=== PATIENT | female | born 1990 | race Caucasian/White ===

== ENCOUNTER 2019-02-20 20:10 | Inpatient (IN) | payer OTHER ==
[~2019-02-20] VITALS: Ht 180.3 cm; Wt 185.0 kg
[~2019-02-20 20:10] MED LIST: Bactrim Ds Tab1 EACH PO; CEPH500 PO; CIPR500 PO; CODACE30 PO; CRUTCH2 USE; FAMO20 PO; FLUO.1OPSO; HYDACE5; HYDACE5 PO; IBUP800 PO; LABE100 PO; LEVFLO500 PO; LOPE2C PO; MULVITMINE PO; NAPR500 PO; NITR100CA PO; ONDA4ODT MM; OXYACE5T PO; PHENA100 PO; PROM25 PO; Prednisone20 MG PO; RXCODACET PO; RXHYDACE PO; RXPROM25 PO; SULTRIDS PO; TOBR.3OPSO OU; Zofran Odt4 MG SL
[2019-02-20 20:48] LABS: BASOPHILS ABSOLUTE AUTO 0.02 K/mm3 (0.00-0.23); BASOPHILS PERCENT AUTO 0 % (0-2); EOSINOPHILS ABSOLUTE AUTO 0.04 K/mm3 (0.00-0.68); EOSINOPHILS PERCENT AUTO 0 % (0-6); Hematocrit 36.6 % (33.0-51.0); Hemoglobin 12.4 g/dL (11.5-16.0); IMMATURE GRAN ABSOLUTE AUTO 0.06 K/mm3 (0.00-0.10); IMMATURE GRAN PERCENT AUTO 1 % (0-1); LYMPHOCYTES ABSOLUTE AUTO 1.97 K/mm3 (0.84-5.20); LYMPHOCYTES PERCENT AUTO 18 % (21-46); MONOCYTES ABSOLUTE AUTO 0.92 K/mm3 (0.16-1.47); MONOCYTES PERCENT AUTO 9 % (4-13); Mean Corpuscular HGB 29.2 pg (26.0-34.0); Mean Corpuscular HGB Conc 33.9 g/dL (31.5-36.5); Mean Corpuscular Volume 86 fL (80-100); Mean Platelet Volume 11.5 fL (9.1-12.4); NEUTROPHILS ABSOLUTE AUTO 7.77 K/mm3 (1.96-9.15); NEUTROPHILS PERCENT AUTO 72 % (41-73); Platelet Count 197 K/mm3 (150-400); RDW Coefficient Variation 13.7 % (11.7-14.2); RDW Standard Deviation 42.6 fL (35.1-46.3); Red Blood Cell Count 4.24 M/mm3 (3.80-5.20); White Blood Cell Count 10.78 K/mm3 (4.00-11.30)
[2019-02-20] MEDS ORDERED: Vitamin C100 M1 (21:03)
[2019-02-20] MEDS ORDERED: IRON150C (21:03)
[2019-02-20] MEDS ORDERED: Verotin-Gr Cap1 EACH (21:03)
[2019-02-22 06:03] LABS: BASOPHILS ABSOLUTE AUTO 0.03 K/mm3 (0.00-0.23); BASOPHILS PERCENT AUTO 0 % (0-2); EOSINOPHILS ABSOLUTE AUTO 0.04 K/mm3 (0.00-0.68); EOSINOPHILS PERCENT AUTO 0 % (0-6); Hemoglobin 11.1 g/dL (11.5-16.0); IMMATURE GRAN ABSOLUTE AUTO 0.04 K/mm3 (0.00-0.10); IMMATURE GRAN PERCENT AUTO 0 % (0-1); LYMPHOCYTES ABSOLUTE AUTO 1.65 K/mm3 (0.84-5.20); LYMPHOCYTES PERCENT AUTO 14 % (21-46); MONOCYTES ABSOLUTE AUTO 1.21 K/mm3 (0.16-1.47); MONOCYTES PERCENT AUTO 10 % (4-13); Mean Corpuscular HGB 28.2 pg (26.0-34.0); Mean Corpuscular HGB Conc 32.6 g/dL (31.5-36.5); Mean Corpuscular Volume 87 fL (80-100); Mean Platelet Volume 11.3 fL (9.1-12.4); NEUTROPHILS ABSOLUTE AUTO 8.78 K/mm3 (1.96-9.15); NEUTROPHILS PERCENT AUTO 75 % (41-73); Platelet Count 186 K/mm3 (150-400); RDW Coefficient Variation 13.8 % (11.7-14.2); RDW Standard Deviation 43.2 fL (35.1-46.3); Red Blood Cell Count 3.93 M/mm3 (3.80-5.20); White Blood Cell Count 11.75 K/mm3 (4.00-11.30)
--- NOTE | 2019-02-22 17:30 | NUR ---
LONG BP CUFF USED INSTEAD OF RADIAL CUFF
[2019-02-22] MEDS ORDERED: IBUP800 PO (20:30)
--- NOTE | 2019-02-22 20:58 | NUR ---
RN REVIEWED DISCHARGE INSTRUCTIONS WITH PATIENT AND S.O., BOTH VERBALIZED UNDERSTANDING AND DENIED ANY FURTHER QUESTIONS OR CONCERNS. BANDS MATCHED WITH BABY AND DISCHARGE INSTRUCTION PAPERWORK GIVEN TO PT.
== END 2019-02-22 21:22 | disposition home or self-care (01) | DRG 806 ==
LOC: BC 20:10
PROVIDERS: ADMIT Nurse Practitioner Obstetrics & Gynecology
PROC: 3E0P7VZ Introduction of Hormone into Female Reproductive, Via Natural or Artificial Opening (ICD-10-PCS; 2019-02-20)
PROC: 10E0XZZ Delivery of Products of Conception, External Approach (ICD-10-PCS; principal; 2019-02-21)
PROC: 3E033VJ Introduction of Other Hormone into Peripheral Vein, Percutaneous Approach (ICD-10-PCS; 2019-02-21)
DX: O24.420 Gestational diabetes mellitus in childbirth, diet controlled (principal); Z68.43 Body mass index [BMI] 50.0-59.9, adult; Z37.0 Single live birth; O99.824 Streptococcus B carrier state complicating childbirth; O99.214 Obesity complicating childbirth; E66.01 Morbid (severe) obesity due to excess calories; Z3A.39 39 weeks gestation of pregnancy
CPT/HCPCS: 36415; 82947; 85025; 86900; 86901; J0290; J1885; J2405; J2590; J7070; J7120

== ENCOUNTER → 2019-08-05 | Outpatient (CLI) | payer OTHER ==
[~2019-08-05] MED LIST changes: +IRON150C; +Verotin-Gr Cap1 EACH; +Vitamin C100 M1
== END | disposition home or self-care (01) ==
LOC: LAB EV 19:44 → LAB SHORT 19:44
DX: N39.0 Urinary tract infection, site not specified (principal)
CPT/HCPCS: 87086

== ENCOUNTER → 2019-10-29 | Outpatient (CLI) | payer OTHER | END | disposition home or self-care (01) | LOC: LAB EV 17:19 → LAB SHORT 17:19 | DX: N39.0 Urinary tract infection, site not specified (principal) | CPT/HCPCS: 87077; 87086; 87186 ==

== ENCOUNTER → 2019-12-13 | Outpatient (CLI) | payer OTHER ==
[2019-12-14 18:09] LABS: CHLAMYDIA TRACHOMATIS, NAA Negative (Negative); NEISSERIA GONORRHOEAE, NAA Negative (Negative)
== END | disposition home or self-care (01) ==
LOC: LAB 10:47 → LAB SHORT 10:47
PROVIDERS: Obstetrics & Gynecology
DX: Z34.81 Encounter for supervision of other normal pregnancy, first trimester (principal)
CPT/HCPCS: 87491; 87591

== ENCOUNTER → 2020-01-13 | Outpatient (CLI) | payer OTHER ==
[2020-01-13 11:10] LABS: Source, Urine Clean Catch
[2020-01-13 12:40] LABS: Appearance, Urine Clear (Clear); Bilirubin, Urine Neg (Neg); Blood, Urine 1+ (Neg); Color, Urine Yellow (P-Yellow); Glucose Qualitative, Urine Neg (Neg); Ketones, Urine Neg (Neg); Leukocyte Esterase, Urine Neg (Neg); Nitrite, Urine Neg (Neg); Protein, Urine Trace (Neg); Specific Gravity, Urine 1.025 (1.003-1.022); Urobilinogen, Urine NORM (Normal)
[2020-01-13 13:02] LABS: Bacteria Many /hpf; Mucus Light (0-Heavy); Red Blood Cells, Urine 0-2 /hpf (0-2); Squamous Epithelial Cells Many /hpf (Few)
== END ==
LOC: LAB UCHC 11:09 → LAB SHORT 11:09
PROVIDERS: Registered Nurse Community Health
DX: Z34.80 Encounter for supervision of other normal pregnancy, unspecified trimester (principal)
CPT/HCPCS: 81001; 87086

== ENCOUNTER → 2020-07-17 | Outpatient (CLI) | payer OTHER ==
[~2020-07-17] MED LIST changes: +TUMS500 MG PO
== END | disposition home or self-care (01) ==
LOC: PLD 11:15
DX: Z34.83 Encounter for supervision of other normal pregnancy, third trimester (principal)
CPT/HCPCS: 87081; 87150

== ENCOUNTER 2020-08-07 05:13 | Inpatient (IN) | payer OTHER ==
[~2020-08-07] VITALS: Ht 180.3 cm; Wt 190.0 kg
[~2020-08-07 05:13] MED LIST changes: -TUMS500 MG PO
[2020-08-07] MEDS ORDERED: TUMS500 MG PO (05:31)
[2020-08-07 05:56] LABS: BASOPHILS ABSOLUTE AUTO 0.02 K/mm3 (0.00-0.23); BASOPHILS PERCENT AUTO 0 % (0-2); EOSINOPHILS ABSOLUTE AUTO 0.05 K/mm3 (0.00-0.68); EOSINOPHILS PERCENT AUTO 1 % (0-6); Hematocrit 35.1 % (33.0-51.0); Hemoglobin 11.6 g/dL (11.5-16.0); IMMATURE GRAN ABSOLUTE AUTO 0.04 K/mm3 (0.00-0.10); IMMATURE GRAN PERCENT AUTO 0 % (0-1); LYMPHOCYTES ABSOLUTE AUTO 1.66 K/mm3 (0.84-5.20); LYMPHOCYTES PERCENT AUTO 18 % (21-46); MONOCYTES ABSOLUTE AUTO 0.71 K/mm3 (0.16-1.47); MONOCYTES PERCENT AUTO 8 % (4-13); Mean Corpuscular HGB 27.8 pg (26.0-34.0); Mean Corpuscular Volume 84 fL (80-100); Mean Platelet Volume 10.6 fL (9.1-12.4); NEUTROPHILS ABSOLUTE AUTO 6.64 K/mm3 (1.96-9.15); NEUTROPHILS PERCENT AUTO 73 % (41-73); Platelet Count 209 K/mm3 (150-400); RDW Coefficient Variation 14.1 % (11.7-14.2); RDW Standard Deviation 42.8 fL (35.1-46.3); Red Blood Cell Count 4.17 M/mm3 (3.80-5.20); White Blood Cell Count 9.12 K/mm3 (4.00-11.30)
[2020-08-08 05:43] LABS: BASOPHILS ABSOLUTE AUTO 0.03 K/mm3 (0.00-0.23); BASOPHILS PERCENT AUTO 0 % (0-2); EOSINOPHILS ABSOLUTE AUTO 0.03 K/mm3 (0.00-0.68); EOSINOPHILS PERCENT AUTO 0 % (0-6); Hematocrit 35.6 % (33.0-51.0); Hemoglobin 11.5 g/dL (11.5-16.0); IMMATURE GRAN ABSOLUTE AUTO 0.07 K/mm3 (0.00-0.10); IMMATURE GRAN PERCENT AUTO 1 % (0-1); LYMPHOCYTES ABSOLUTE AUTO 1.73 K/mm3 (0.84-5.20); LYMPHOCYTES PERCENT AUTO 11 % (21-46); MONOCYTES ABSOLUTE AUTO 1.46 K/mm3 (0.16-1.47); MONOCYTES PERCENT AUTO 10 % (4-13); Mean Corpuscular HGB 27.4 pg (26.0-34.0); Mean Corpuscular HGB Conc 32.3 g/dL (31.5-36.5); Mean Corpuscular Volume 85 fL (80-100); Mean Platelet Volume 10.4 fL (9.1-12.4); NEUTROPHILS ABSOLUTE AUTO 11.94 K/mm3 (1.96-9.15); NEUTROPHILS PERCENT AUTO 78 % (41-73); Platelet Count 234 K/mm3 (150-400); RDW Coefficient Variation 14.3 % (11.7-14.2); RDW Standard Deviation 43.7 fL (35.1-46.3); Red Blood Cell Count 4.19 M/mm3 (3.80-5.20); White Blood Cell Count 15.26 K/mm3 (4.00-11.30)
--- NOTE | 2020-08-08 13:22 | NUR ---
RN/LC ROUNDED TO HELP W/ . PT IS EXPERIENCED MOM, STATES IS GOING WELL, DENIES QUESTIONS OR CONCERNS. FURTHER LC OFFERED IF PT DESIRES.
--- NOTE | 2020-08-08 15:37 | NUR ---
REPORT TO AVERY DOHERTY AT [id number]
--- NOTE | 2020-08-08 20:16 | NUR ---
18G IV TO LEFT WRIST D/C'D WITHIN NORMAL LIMITS.
--- NOTE | 2020-08-08 20:29 | NUR ---
RX FOR IBUPROFEN CALLED INTO [facility]. PT GIVEN HARD COPY OF RX WELL
--- NOTE | 2020-08-08 21:06 | NUR ---
PT ESCORTED TO PRIVATE CAR. AMBULATING WITHOUT DIFFICULTY. BELONGINGS TAKEN WITH PT. PT RECEIVED WRITTEN AND VERBAL DISCHARGE INSTRUCTIONS AND VERBALIZE UNDERSTANDING.
== END 2020-08-08 21:03 | disposition home or self-care (01) | DRG 807 ==
LOC: BC 05:13 → OBS 05:19 → BC 05:20
PROVIDERS: ADMIT Registered Nurse Community Health
PROC: 10E0XZZ Delivery of Products of Conception, External Approach (ICD-10-PCS; principal; 2020-08-07)
PROC: 3E033VJ Introduction of Other Hormone into Peripheral Vein, Percutaneous Approach (ICD-10-PCS; 2020-08-07)
PROC: 10907ZC Drainage of Amniotic Fluid, Therapeutic from Products of Conception, Via Natural or Artificial Opening (ICD-10-PCS; 2020-08-07)
DX: O99.214 Obesity complicating childbirth (principal); Z37.0 Single live birth; E66.01 Morbid (severe) obesity due to excess calories; Z3A.39 39 weeks gestation of pregnancy
CPT/HCPCS: 36415; 85025; 86850; 86900; 86901; A9270; J1885; J2210; J2590; J7120

== ENCOUNTER 2021-07-20 14:29 | Emergency (ER) | payer OTHER ==
[~2021-07-20] VITALS: Ht 180.3 cm; Wt 204.1 kg
[~2021-07-20 14:29] MED LIST changes: +TUMS500 MG PO
== END 2021-07-20 16:48 | disposition home or self-care (01) ==
LOC: ER 14:29
DX: R07.81 Pleurodynia (principal); Z88.2 Allergy status to sulfonamides; Z91.011 Allergy to milk products; Z88.8 Allergy status to other drugs, medicaments and biological substances; F17.290 Nicotine dependence, other tobacco product, uncomplicated
CPT/HCPCS: 71046; 93005; 93010; 99284-25; A9270

== ENCOUNTER → 2021-07-29 | Outpatient (CLI) | payer OTHER ==
[2021-07-29 17:43] LABS: BASOPHILS ABSOLUTE AUTO 0.01 K/mm3 (0.00-0.23); BASOPHILS PERCENT AUTO 0 % (0-2); EOSINOPHILS PERCENT AUTO 0 % (0-6); IMMATURE GRAN ABSOLUTE AUTO 0.01 K/mm3 (0.00-0.10); IMMATURE GRAN PERCENT AUTO 0 % (0-1); LYMPHOCYTES ABSOLUTE AUTO 0.51 K/mm3 (0.84-5.20); LYMPHOCYTES PERCENT AUTO 8 % (21-46); MONOCYTES ABSOLUTE AUTO 0.68 K/mm3 (0.16-1.47); MONOCYTES PERCENT AUTO 10 % (4-13); Mean Corpuscular HGB 26.2 pg (26.0-34.0); Mean Corpuscular HGB Conc 32.4 g/dL (31.5-36.5); Mean Corpuscular Volume 81 fL (80-100); NEUTROPHILS ABSOLUTE AUTO 5.38 K/mm3 (1.96-9.15); NEUTROPHILS PERCENT AUTO 82 % (41-73); Platelet Count 181 K/mm3 (150-400); RDW Coefficient Variation 14.8 % (11.7-14.2); RDW Standard Deviation 43.5 fL (35.1-46.3); Red Blood Cell Count 4.58 M/mm3 (3.80-5.20); White Blood Cell Count 6.59 K/mm3 (4.00-11.30)
[2021-07-29 17:57] LABS: Alanine Aminotransfer (ALT/SGP 28 U/L (12-78); Albumin, Blood 3.7 g/dL (3.4-5.0); Albumin/Globulin Ratio 1.1 (0.8-1.8); Alk Phos 82 U/L (40-126); Anion Gap 12 mmol/L (6-16); Aspartate Aminotrans (AST/SGOT 17 U/L (12-37); Bilirubin, Total 0.7 mg/dL (0.1-1.0); Blood Urea Nitrogen 6 mg/dL (8-24); Bun/Creatinine Ratio 6.7 (12.0-20.0); CO2, Blood 26 mmol/L (21-32); Calcium, Blood 8.1 mg/dL (8.5-10.1); Chloride, Blood 101 mmol/L (98-108); Globulin, Blood 3.3 g/dL (2.2-4.0); Glomerular Filtration Rate >60 (60-); Glucose, Blood 107 mg/dL (70-99); Potassium, Blood 3.5 mmol/L (3.5-5.5); Sodium, Blood 139 mmol/L (136-145)
== END | disposition home or self-care (01) ==
LOC: LAB SHORT 17:38
PROVIDERS: Physician Assistant Medical
DX: R05.9 Cough, unspecified (principal)
CPT/HCPCS: 80053; 85025

== ENCOUNTER 2021-08-04 17:36 | Inpatient (IN) | payer OTHER ==
[~2021-08-04] VITALS: Ht 180.3 cm; Wt 196.0 kg
[~2021-08-04 17:36] MED LIST changes: +POTA20PAC PO; +Prochlorperazin10 MG PO
[2021-08-04 20:22] LABS: BASOPHILS ABSOLUTE AUTO 0.01 K/mm3 (0.00-0.23); BASOPHILS PERCENT AUTO 0 % (0-2); EOSINOPHILS PERCENT AUTO 0 % (0-6); Hematocrit 38.2 % (33.0-51.0); Hemoglobin 12.4 g/dL (11.5-16.0); IMMATURE GRAN ABSOLUTE AUTO 0.07 K/mm3 (0.00-0.10); IMMATURE GRAN PERCENT AUTO 1 % (0-1); LYMPHOCYTES ABSOLUTE AUTO 0.74 K/mm3 (0.84-5.20); LYMPHOCYTES PERCENT AUTO 15 % (21-46); MONOCYTES ABSOLUTE AUTO 0.36 K/mm3 (0.16-1.47); MONOCYTES PERCENT AUTO 7 % (4-13); Mean Corpuscular HGB 25.8 pg (26.0-34.0); Mean Corpuscular HGB Conc 32.5 g/dL (31.5-36.5); Mean Corpuscular Volume 80 fL (80-100); Mean Platelet Volume 10.3 fL (9.1-12.4); NEUTROPHILS ABSOLUTE AUTO 3.88 K/mm3 (1.96-9.15); NEUTROPHILS PERCENT AUTO 77 % (41-73); Platelet Count 164 K/mm3 (150-400); RDW Coefficient Variation 14.9 % (11.7-14.2); RDW Standard Deviation 43.6 fL (35.1-46.3); White Blood Cell Count 5.06 K/mm3 (4.00-11.30)
[2021-08-04 20:44] LABS: Alanine Aminotransfer (ALT/SGP 24 U/L (12-78); Albumin, Blood 2.8 g/dL (3.4-5.0); Albumin/Globulin Ratio 0.6 (0.8-1.8); Alk Phos 57 U/L (50-136); Anion Gap 10 mmol/L (6-16); Aspartate Aminotrans (AST/SGOT 49 U/L (12-37); Bilirubin, Total 0.6 mg/dL (0.1-1.0); Blood Urea Nitrogen 9 mg/dL (8-24); Bun/Creatinine Ratio 13.4 (12.0-20.0); CO2, Blood 27 mmol/L (21-32); Calcium, Blood 8.1 mg/dL (8.5-10.1); Chloride, Blood 102 mmol/L (98-108); Creatinine, Blood 0.67 mg/dL (0.40-1.00); Globulin, Blood 4.5 g/dL (2.2-4.0); Glomerular Filtration Rate >60 (60-); Glucose, Blood 103 mg/dL (70-99); Magnesium, Blood 2.1 mg/dL (1.6-2.4); Potassium, Blood 2.7 mmol/L (3.5-5.5); Sodium, Blood 139 mmol/L (136-145); Total Protein, Blood 7.3 g/dL (6.4-8.2); Troponin I <0.015 ng/mL (0.000-0.040)
[2021-08-05 04:57] LABS: Hematocrit 37.3 % (33.0-51.0); Mean Corpuscular HGB 25.8 pg (26.0-34.0); Mean Corpuscular HGB Conc 32.2 g/dL (31.5-36.5); Mean Corpuscular Volume 80 fL (80-100); Mean Platelet Volume 10.5 fL (9.1-12.4); Platelet Count 158 K/mm3 (150-400); RDW Standard Deviation 43.9 fL (35.1-46.3); Red Blood Cell Count 4.66 M/mm3 (3.80-5.20); White Blood Cell Count 3.08 K/mm3 (4.00-11.30)
--- NOTE | 2021-08-05 05:29 | NUR ---
PT WAS ADMITTED FROM THE ED AT 2320 IN RM 207 WITH A COVID+ DX. SHE ARRIVED VIA STRETCHER AND WAS ASSISTED WITH GOING TO BED. SHE WAS ABLE TO GET UP FROM THE STRETCHER, AMBULATE TO THE BATHROOM AND TO BED. SHE IS NOW IN BED AND IS RESTING. SHE CAME WITH SOB AND DECREASE O2 SAT WITHOUT OXYGEN. SHE WAS URGED TO KEEP HER O2 ON TO SUPPORT HER RESPIRATORY FUNCTION AND PROMOTE AIR EXCHANGE. SHE IS ALERT, AWAKE AND ORIENTED. ASSISTED WITH CARE AND ADLS, ASSISTED WITH BATHROOM NEEDS NECESSARY, MEDICATED INDICATED. HER CALL LIGHT WAS PLACED NEXT TO HER AND WAS URGED TO CALL FOR HELP WHEN ASSISTANCE IS NEEDED SHE IS MONITORED.
[2021-08-05 05:59] LABS: BAND PERCENT MAN 2 % (0-8); BASOPHILS PERCENT MAN 0 % (0-2); EOSINOPHILS PERCENT MAN 0 % (0-6); LYMPHOCYTES PERCENT MAN 10 % (21-46); MONOCYTES ABSOLUTE MAN 0.21 K/mm3 (0.16-1.47); MONOCYTES PERCENT MAN 7 % (4-13); MYELOCYTE ABSOLUTE MAN 0.03 K/mm3 (0.00-0.00); MYELOCYTE PERCENT MAN 1 % (0-0); NEUTROPHILS ABSOLUTE MAN 2.52 K/mm3 (1.96-9.15); SEG NEUTROPHILS PERCENT MAN 80 % (41-73); TOTAL CELLS COUNTED 100
[2021-08-05 06:20] LABS: Alanine Aminotransfer (ALT/SGP 26 U/L (12-78); Albumin, Blood 2.5 g/dL (3.4-5.0); Albumin/Globulin Ratio 0.6 (0.8-1.8); Alk Phos 57 U/L (50-136); Anion Gap 11 mmol/L (6-16); Aspartate Aminotrans (AST/SGOT 45 U/L (12-37); Bilirubin, Total 0.6 mg/dL (0.1-1.0); Blood Urea Nitrogen 8 mg/dL (8-24); Bun/Creatinine Ratio 14.5 (12.0-20.0); CO2, Blood 26 mmol/L (21-32); Calcium, Blood 7.9 mg/dL (8.5-10.1); Chloride, Blood 102 mmol/L (98-108); Creatinine, Blood 0.55 mg/dL (0.40-1.00); Glomerular Filtration Rate >60 (60-); Glucose, Blood 118 mg/dL (70-99); Magnesium, Blood 2.5 mg/dL (1.6-2.4); Potassium, Blood 3.5 mmol/L (3.5-5.5); Sodium, Blood 139 mmol/L (136-145); Total Protein, Blood 6.5 g/dL (6.4-8.2)
--- NOTE | 2021-08-05 17:49 | NUR ---
PATIENT CURRENTLY SITTING UP IN CHAIR WITH O2 AT 8L PER NC DUE TO HER GOING TO THE BATHROOM AND DESATING WITH THE EXERTION. PATIENT IS SATING 90-92%. TODAY PATIENT DECIDED SHE WOULD LIKE TO TAKE THE REMDISIVIR THAT SHE WOULD NOT TAKE BEFORE AFTER TALKING TO HER MOTHER AND BROTHER. PATIENT AAOX4, ABLE TO MAKE NEEDS AND WANTS KNOWN. BREATHING IS LABORED. NO COMPLAINTS OF PAIN VOICED. PATIENT DID COMPLAIN OF NAUSEA THIS AM AND WAS MEDICATED AND IT WAS EFFECTIVE. PATIENT COMPLAINED OF HEARTBURN, NEW ORDERS RECIEVED AND MAALOX WAS GIVEN. PATIENT HAD A VISITOR IN ROOM TODAY, ASKED THEM TO LEAVE PATIENT IS COVID POSITIVE AND VISITORS ARE NOT ALOUD TO VISIT AT THIS TIME. PATIENT AND VISITER UNDERSTOOD. CALL LIGHT AND WATER IN EASY REACH. WILL MONITOR AND TRY TO WEAN O2.
--- NOTE | 2021-08-06 05:35 | NUR ---
PT IS IN BED AT THIS TIME WHERE SHE REMAINS DURING THE NIGHT AND IS RESTING. PT IS BEING TREATED AND MONITORED FOR COVID 19. SHE HAS C/O DIFFICULTY BREATHING AND WAS ADMINISTERED OXYGEN AT 10L PER NON-REBREATHER MASK BY RT. SHE HAS ALSO C/O NAUSEA AND WAS MEDICATED WITH ZOFRAN WITH POSITIVE EFFECT. SHE ASSISTED WITH HER CARE AND ADLs, MEDICATED INDICATED. HER CALL LIGHT WAS PLACED NEAR HER AND WAS ENCOURAGED TO CALL FOR HELP WHEN ASSISTANCE IS NEEDED SHE IS MONITORED.
--- NOTE | 2021-08-06 09:58 | NUR ---
PATIENT CURRENTLY SITTING UP IN CHAIR AT BEDSIDE. PATIENT IS NOW ON OXIMIZER FOR HER O2 NEEDS. UPON ARRIVING THIS SHIFT PATIENT WAS ON 10L NRB, PATIENT NEEDED TO USE THE RESTROOM, STATES SHE HAS BEEN HOLDING IT ALL NIGHT. NRB WILL NOT REACH TO BATHROOM, CHANGED TO HF NC AT 12L, PATIENT DESATS. INCREASED TO 14L HFNC, PATIENT ABLE TO GET UP AND GO TO BATHROOM, WITH DESATS NOTED DOWN TO 80%, INCREASED TO 15L HFNC, PATIENT SLOWLY RECOVERED WILL SITTING ON TOILET. PATIENT BACK TO CHAIR IN ROOM PER HER REQUEST TO SIT UP. NOTIFED DR ABRAHAM, WITH NEW ORDERS RECIEVED TO PLACE PATIENT ON OXIMIZER AND TRANSFER TO PCU. REPORT CALLED TO CHAS ESPINAL, PATIENT TO TRANSFER TO PCU4 WHEN ROOM READY. AWAITING CALL FROM TEDDY.
--- NOTE | 2021-08-06 10:46 | NUR ---
Assumed care of patient, report recieved from [facility] surg floor RN. Patient arrived to PCU 4 via bed. She is alert and oriented. States she has some chest pain with coughing. HRR SR in the 80s. LS dim t/o wtih some faint exp wheezing, biox 96% on 30L high flow with 80% FIO2. Patient states she has a minimally PC with clear sputum. bt+. PPP. VSS. Patient assisted to prone, biox 95%.
--- NOTE | 2021-08-06 15:00 | NUR ---
Update: Pts mother at bedside, given update on patients condition. Patient is currently sitting at the edge of the bed. She has been able to prone, she is able to tolerate about an hour at a time. VSS. Patient denies other needs at this time. Call light in reach, will continue to montior.
--- NOTE | 2021-08-06 18:00 | NUR ---
Update: Patient is proning, she is on the high flow NC at 12L, biox is 100%. This RN was able to titrate her oxygen down to 4L via NC over the course of about 30 min, oxygen saturations remain 95% and above. Patient denies other needs at this time. Call light in reach, will continue to monitor.
--- NOTE | 2021-08-06 18:20 | NUR ---
Summary: Patient was transferred over from the surgical floor for increasing oxygen requirements. She is here with COVID pneumonia. Initially when she came over she was on 30L high flow with an FIO2 of 80%. Over the course of the day we were able to titrate her oxygen down to 4l via NC. After some education regarding COVID and the benefits of proning, she has been self proning as much as she can tolerate. Her mother has been at the bedside. Patient denies other needs at this time. Call light in reach, Will continue to monitor.
--- NOTE | 2021-08-06 22:08 | NUR ---
CARE ASSUMPTION PT SITTING AT THE SIDE OF THE BED REPORTING NAUSEA AND INDIGESTION, TREATED PER EMAR. O2 SAT >92% ON 15-15L WHEN UP AND TALKING BUT MAINTAINS O2 SATS >90% WHEN LYING PRONE IN BED. PT AFEBRILE AND BP MILDLY ELEVATED W SBP IN THE 150'S. PT USED THE BSC AND RETURNED TO THE BED LYING PRONE. PT DENYING ANY FURTHER NEEDS AT THIS TIME.
[2021-08-07 03:41] LABS: Hematocrit 37.4 % (33.0-51.0); Hemoglobin 11.9 g/dL (11.5-16.0); Mean Corpuscular HGB 25.6 pg (26.0-34.0); Mean Corpuscular HGB Conc 31.8 g/dL (31.5-36.5); Mean Corpuscular Volume 81 fL (80-100); Mean Platelet Volume 9.9 fL (9.1-12.4); Platelet Count 243 K/mm3 (150-400); RDW Coefficient Variation 15.1 % (11.7-14.2); RDW Standard Deviation 44.4 fL (35.1-46.3); Red Blood Cell Count 4.64 M/mm3 (3.80-5.20)
[2021-08-07 04:02] LABS: Alanine Aminotransfer (ALT/SGP 25 U/L (12-78); Albumin, Blood 2.7 g/dL (3.4-5.0); Albumin/Globulin Ratio 0.6 (0.8-1.8); Alk Phos 50 U/L (50-136); Anion Gap 8 mmol/L (6-16); Aspartate Aminotrans (AST/SGOT 25 U/L (12-37); Bilirubin, Total 0.6 mg/dL (0.1-1.0); Blood Urea Nitrogen 17 mg/dL (8-24); Bun/Creatinine Ratio 28.6 (12.0-20.0); CO2, Blood 30 mmol/L (21-32); Calcium, Blood 8.6 mg/dL (8.5-10.1); Chloride, Blood 101 mmol/L (98-108); Creatinine, Blood 0.59 mg/dL (0.40-1.00); Globulin, Blood 4.5 g/dL (2.2-4.0); Glomerular Filtration Rate >60 (60-); Glucose, Blood 142 mg/dL (70-99); Potassium, Blood 3.3 mmol/L (3.5-5.5); Sodium, Blood 139 mmol/L (136-145); Total Protein, Blood 7.2 g/dL (6.4-8.2)
[2021-08-07 04:32] LABS: BAND PERCENT MAN 2 % (0-8); BASOPHILS PERCENT MAN 0 % (0-2); EOSINOPHILS PERCENT MAN 0 % (0-6); LYMPHOCYTES ABSOLUTE MAN 0.56 K/mm3 (0.84-5.20); LYMPHOCYTES PERCENT MAN 11 % (21-46); MONOCYTES ABSOLUTE MAN 0.71 K/mm3 (0.16-1.47); MONOCYTES PERCENT MAN 14 % (4-13); NEUTROPHILS ABSOLUTE MAN 3.82 K/mm3 (1.96-9.15); SEG NEUTROPHILS PERCENT MAN 73 % (41-73); TOTAL CELLS COUNTED 100
--- NOTE | 2021-08-07 05:31 | NUR ---
EXECUTIVE PILOT SUMMARY PT IS AXO X4 AND USES HER CALL LIGHT TO MAKE HER NEEDS KNOWN. PT REFUSED TO LIE PRONE AND HER O2 SATS CONTINUED TO BE <89% SO SHE WAS PLACED ON AIRVO 35L W 80% FIO2. PT AFEBRILE THIS SHIFT W PEAK TEMP OF 98.6. PT SLEPT ON AND OFF THIS SHIFT BUT WAS UNABLE TO GET COMFORTABLE DUE TO PERSISTANT COUGH. BP WNL AND STABLE. TELE SHOWING SR 60'S TO SB LOW 50 THIS SHIFT. WILL REPORT TO ONCOMING RN.
--- NOTE | 2021-08-07 08:00 | NUR ---
INITIAL ASSESSMENT: Patient is awake, alert, and oriented. She is sitting on the edge of the bed looking at her phone. She denies pain at this time. HRR, SR in the 90s. LS DIM and coarse T/O, she has a PC with clear thin sputum. Biox 30L FIO2 80%, biox is in the high 90s, FIO2 titrated down to 70%, biox remains stable. BT +. Patient continues to have some loose stool. Blood pressure a little on the high side this am, PO cozaar given, will reassess. Patient denies other needs at this time. Call light in reach, will continue to monitor.
--- NOTE | 2021-08-07 12:00 | NUR ---
Update: Blood pressure still a little high, additional dose of cozzar given. Other VSS. Assessment unchanged. Patient is visiting with brother and denies other needs. Will continue to monitor.
--- NOTE | 2021-08-07 16:49 | NUR ---
Update: Patient sitting on the edge of the bed visiting with fiance. VAZQUEZ. Patient oxygen saturations 90-95% on the high flow NC 35% 60% FIO2. Patient states she is going to get cleaned up and then try to prone for a little bit longer. Patient set up for bed bath. She denies other needs at this time. Call light in reach, will continue to monitor.
--- NOTE | 2021-08-07 17:51 | NUR ---
SUMMARY: Patient is a 31 yo female admitted with COVID pneumonia. She has had a decent day. We were able to titrate her oxygen down to 35L and 60% FIO2, when she is sitting up her oxygen saturations are between 90-94%. She was able to prone today and saturations improved to 100% this evening, but when she is unprone. Blood pressure has been a little on the high side today, Dr. Hernandez increased Cozaar dose to 25 mg po daily. No other acute changes this shift. Will report to oncoming RN.
--- NOTE | 2021-08-07 23:19 | NUR ---
ASSUMED CARE OF PT AT 1900. A/OX4. MAINTAINS ABOVE 90% ON AIRVO 30L/40% FIO2. LS DIM ON TOP AND EXP WHEEZE ON BOTTOM BL. MODERATE THICK YELLOW, BLOOD STREAKED SPUTUM PER PT REPORT. NORMAL O2 BASELINE IS RA. SR ON TELE IN THE 70'S. HAS CHEST MUSCLE PAIN WITH COUGHING, AND LOW BACK PAIN WITH PRONING FOR AN EXTENDED PERIOD OF TIME. PT HAS STARTED MENSTRUATING AGAIN AFTER RECENTLY ALREADY FINISHING A CYCLE. PT HAS FLAT AFFECT AND WITHDRAWN. WILL UPDATE CHANGES OCCUR.
[2021-08-08 04:53] LABS: BASOPHILS ABSOLUTE AUTO 0.01 K/mm3 (0.00-0.23); BASOPHILS PERCENT AUTO 0 % (0-2); EOSINOPHILS PERCENT AUTO 0 % (0-6); Hematocrit 36.5 % (33.0-51.0); Hemoglobin 11.5 g/dL (11.5-16.0); IMMATURE GRAN PERCENT AUTO 2 % (0-1); LYMPHOCYTES ABSOLUTE AUTO 0.69 K/mm3 (0.84-5.20); LYMPHOCYTES PERCENT AUTO 12 % (21-46); MONOCYTES ABSOLUTE AUTO 0.73 K/mm3 (0.16-1.47); MONOCYTES PERCENT AUTO 12 % (4-13); Mean Corpuscular HGB 25.6 pg (26.0-34.0); Mean Corpuscular HGB Conc 31.5 g/dL (31.5-36.5); Mean Corpuscular Volume 81 fL (80-100); Mean Platelet Volume 10.3 fL (9.1-12.4); NEUTROPHILS ABSOLUTE AUTO 4.38 K/mm3 (1.96-9.15); NEUTROPHILS PERCENT AUTO 74 % (41-73); Platelet Count 228 K/mm3 (150-400); RDW Coefficient Variation 14.9 % (11.7-14.2); White Blood Cell Count 5.91 K/mm3 (4.00-11.30)
[2021-08-08 05:21] LABS: Anion Gap 8 mmol/L (6-16); Blood Urea Nitrogen 14 mg/dL (8-24); Bun/Creatinine Ratio 24.7 (12.0-20.0); CO2, Blood 31 mmol/L (21-32); Calcium, Blood 8.1 mg/dL (8.5-10.1); Chloride, Blood 102 mmol/L (98-108); Creatinine, Blood 0.57 mg/dL (0.40-1.00); Glomerular Filtration Rate >60 (60-); Glucose, Blood 141 mg/dL (70-99); Potassium, Blood 3.5 mmol/L (3.5-5.5); Sodium, Blood 141 mmol/L (136-145)
--- NOTE | 2021-08-08 17:40 | NUR ---
PT'S O2 NEEDS HAVE DECREASED SLIGHTLY THIS SHIFT, PT NOW WITH AIRVO SETTINGS OF 45L @ 75%. PT A/O X4. SHE IS FLAT AND WITHDRAWN, MOOD SEEMS TO IMPROVE WHEN MOTHER ARRIVED. PT WAS ABLE TO PRONE FOR A GOOD DEAL OF THE DAY WITH SPO2 >95%. PT WAS ABLE AT THE END OF THE SHIFT TO GET UP TO BEDSIDE CHAIR WITH MODERATE DECREASE IN SPO2 TO 92% WITHOUT AIRVO SETTINGS. VSS. DENIES ANY CHANGE IN WORK OF BREATHING. PT EDUCATED THOROUGHLY ABOUT PRONING AND MOVING AROUND IN BED. PT ASKED IF SHE CAN CAN SIT UP AT BEDSIDE IN CHAIR TO EAT DINNER WHICH SHE IS TOLERATING WELL
--- NOTE | 2021-08-08 22:05 | NUR ---
ASSUMED CARE OF PT AT 1900. A/OX4. MAINTAINS ABOVE 90% ON AIRVO 45L/75% FIO2. LS DIM T/O. NORMAL O2 BASELINE IS RA. SR ON TELE IN THE 'S. PATIENT IN BETTER SPIRITS TODAY AFTER VISIT WITH MOTHER. PATIENT STATES SHE FELT LIKE SHE WAS IN A DAZE LAST NIGHT AND SEEING THINGS NOT THERE D/T LACK OF SLEEP. PATIENT SAT IN CHAIR DURING DAYSHIFT WITH MINIMAL DESAT. WILL UPDATE CHANGES OCCUR.
[2021-08-09 04:02] LABS: Hematocrit 36.7 % (33.0-51.0); Hemoglobin 11.6 g/dL (11.5-16.0); Mean Corpuscular HGB 25.6 pg (26.0-34.0); Mean Corpuscular HGB Conc 31.6 g/dL (31.5-36.5); Mean Corpuscular Volume 81 fL (80-100); Mean Platelet Volume 10.2 fL (9.1-12.4); Platelet Count 186 K/mm3 (150-400); RDW Coefficient Variation 14.5 % (11.7-14.2); RDW Standard Deviation 43.1 fL (35.1-46.3); Red Blood Cell Count 4.53 M/mm3 (3.80-5.20)
[2021-08-09 04:25] LABS: Alanine Aminotransfer (ALT/SGP 20 U/L (12-78); Albumin, Blood 2.7 g/dL (3.4-5.0); Albumin/Globulin Ratio 0.7 (0.8-1.8); Alk Phos 42 U/L (50-136); Anion Gap 7 mmol/L (6-16); Aspartate Aminotrans (AST/SGOT 22 U/L (12-37); Bilirubin, Total 0.6 mg/dL (0.1-1.0); Blood Urea Nitrogen 14 mg/dL (8-24); Bun/Creatinine Ratio 23.8 (12.0-20.0); CO2, Blood 32 mmol/L (21-32); Calcium, Blood 8.1 mg/dL (8.5-10.1); Chloride, Blood 101 mmol/L (98-108); Creatinine, Blood 0.59 mg/dL (0.40-1.00); Ferritin, Serum 645 ng/mL (8-252); Globulin, Blood 3.7 g/dL (2.2-4.0); Glomerular Filtration Rate >60 (60-); Glucose, Blood 144 mg/dL (70-99); Potassium, Blood 3.7 mmol/L (3.5-5.5); Sodium, Blood 140 mmol/L (136-145); Total Protein, Blood 6.4 g/dL (6.4-8.2)
--- NOTE | 2021-08-09 11:32 | NUR ---
PATIENT ALERT AND ORIENTED X4. NEURO WNL. PERRLA. AT TIMES FLAT AND WITHDRAWN. DOES WELL WITH MOTIVATION. ABLE TO MOVE ALL EXTREMITIES. DESATING WITH MOVEMENT. ON AIRVO AT 45L AND 75% SATING HIGH 90'S WHEN SIDE LYING OR PRONE. DESATS WHEN SITTING UP OR MOVING. SHALLOW BREATHING. OCCASIONAL COUGH WITH SPUTUM. TELE SHOWING SINUS XAVI THIS AM WITH HR 46-60'S. DENIES CHEST PAIN/PRESSURE. VITAL SIGNS STABLE. DENIES ABDOMINAL PAIN. MILD NAUSEA THIS AM, MEDICATED PER EMAR. ATTENDS IN PLACE. PATIENT STATES SHE IS ON HER PERIOD. EATING AND DRINKING WATER. TAKES PILLS WHOLE. CALL LIGHT IN REACH. DENIES NEEDS AT THIS TIME. WILL CONTINUE TO MONITOR.
--- NOTE | 2021-08-09 19:17 | NUR ---
SHIFT SUMMARY: NO ACUTE CHANGES. TELE REMAINS SINUS XAVI. DENIES CHEST PAIN/PRESSURE. ON AIRVO AT 45L AND 70% SATING MID 90'S. STIL DESATING WITH MOVEMENT. UP TO CHAIR FOR MOST OF AFTERNOON. PATIENT MOTIVATED TO PRONE, SIDELYING AND UP IN CHAIR. DENIES OTHER PAINS. VITAL SIGNS STABLE. SEE PREVIOUS NOTE. CALL LIGHT IN REACH. REPORTED OFF.
--- NOTE | 2021-08-09 22:54 | NUR ---
ASSUMED CARE OF PT AT 1900. NO ACUTE CHANGES. AIRVO AT 45L AND 60%. LS DIM T/O. PATIENT WAS IN A GREAT MOOD AND SAYS SHE'S FEELING BETTER. STILL DESATS INTO 70'S WITH AMBULATION TO BSC BUT RECOVERS WITHIN 3 MINUTES. STILL SR/SB ON TELE. WILL UPDATE CHANGES OCCUR.
[2021-08-10 04:07] LABS: Hematocrit 36.3 % (33.0-51.0); Hemoglobin 11.4 g/dL (11.5-16.0); Mean Corpuscular HGB 25.6 pg (26.0-34.0); Mean Corpuscular HGB Conc 31.4 g/dL (31.5-36.5); Mean Corpuscular Volume 82 fL (80-100); Mean Platelet Volume 10.4 fL (9.1-12.4); Platelet Count 199 K/mm3 (150-400); RDW Coefficient Variation 14.3 % (11.7-14.2); RDW Standard Deviation 42.2 fL (35.1-46.3); Red Blood Cell Count 4.45 M/mm3 (3.80-5.20); White Blood Cell Count 7.02 K/mm3 (4.00-11.30)
[2021-08-10 04:39] LABS: Alanine Aminotransfer (ALT/SGP 19 U/L (12-78); Albumin, Blood 2.8 g/dL (3.4-5.0); Albumin/Globulin Ratio 0.9 (0.8-1.8); Alk Phos 44 U/L (50-136); Anion Gap 8 mmol/L (6-16); Aspartate Aminotrans (AST/SGOT 16 U/L (12-37); Bilirubin, Total 0.6 mg/dL (0.1-1.0); Blood Urea Nitrogen 13 mg/dL (8-24); Bun/Creatinine Ratio 21.3 (12.0-20.0); CO2, Blood 32 mmol/L (21-32); Calcium, Blood 7.8 mg/dL (8.5-10.1); Chloride, Blood 101 mmol/L (98-108); Creatinine, Blood 0.61 mg/dL (0.40-1.00); Ferritin, Serum 500 ng/mL (8-252); Globulin, Blood 3.2 g/dL (2.2-4.0); Glomerular Filtration Rate >60 (60-); Glucose, Blood 158 mg/dL (70-99); Potassium, Blood 3.8 mmol/L (3.5-5.5); Sodium, Blood 141 mmol/L (136-145)
--- NOTE | 2021-08-10 17:25 | NUR ---
PT SUMMARY: NO ACUTE CHANGE FOR THE SHIFT. PT WAS SWITCHED TO HI LIZZY NASAL CANNULA AT 8L SATS REMAINED 92-94% PT ABLE TO TOLERATE. DENIES ANY PAIN FOR THE SHIFT, VITALS HAS BEEN STABLE. MOSTLY FLAT AND WITHDRAWN COVERSIVE AT TIMES, NEEDS ENCOURAGEMENT, INSTRUCTED DEEP BREATHING EXERCISES, BREATHING TX PER RT. WANTING TO GET IN THE SHOWER AFTER DINNER. GETS UP SBA TO USE BEDSIDE COMMODE, PT REPORTED STILL ON HER PERIOD PERIPADS OFFERED. NO OTHER ISSUES REPORTED, FAMILY CAME IN TO VISIT, PT CALLS APPROPRIATELY ABLE TO MAKE NEEDS KNOWN, WILL REPORT TO ONCOMING SHIFT
[2021-08-11 04:20] LABS: Hematocrit 37.7 % (33.0-51.0); Hemoglobin 11.7 g/dL (11.5-16.0); Mean Corpuscular HGB 25.7 pg (26.0-34.0); Mean Corpuscular Volume 83 fL (80-100); Mean Platelet Volume 10.6 fL (9.1-12.4); Platelet Count 261 K/mm3 (150-400); RDW Coefficient Variation 14.6 % (11.7-14.2); RDW Standard Deviation 43.9 fL (35.1-46.3); Red Blood Cell Count 4.56 M/mm3 (3.80-5.20); White Blood Cell Count 7.57 K/mm3 (4.00-11.30)
[2021-08-11 05:09] LABS: Alanine Aminotransfer (ALT/SGP 21 U/L (12-78); Albumin, Blood 2.8 g/dL (3.4-5.0); Albumin/Globulin Ratio 0.9 (0.8-1.8); Alk Phos 44 U/L (50-136); Anion Gap 7 mmol/L (6-16); Aspartate Aminotrans (AST/SGOT 16 U/L (12-37); Bilirubin, Total 0.6 mg/dL (0.1-1.0); Blood Urea Nitrogen 13 mg/dL (8-24); CO2, Blood 31 mmol/L (21-32); Calcium, Blood 7.8 mg/dL (8.5-10.1); Chloride, Blood 102 mmol/L (98-108); Creatinine, Blood 0.59 mg/dL (0.40-1.00); Globulin, Blood 3.2 g/dL (2.2-4.0); Glomerular Filtration Rate >60 (60-); Glucose, Blood 151 mg/dL (70-99); Potassium, Blood 4.3 mmol/L (3.5-5.5); Sodium, Blood 140 mmol/L (136-145)
--- NOTE | 2021-08-11 05:16 | NUR ---
SHIFT SUMMARY PT RESTED WELL THROUGH THE NIGHT. ALERT AND ORIENTED, ABLE TO MAKE NEEDS KNOWN. COOPERATIVE WITH PLAN OF CARE. SATS >95% ON 6LNC, FORTUNATELY WAS ABLE TO WEAN DOWN O2. PT UP AND ABLE TO VOID TO TOILET AND SHOWER SELF, MAINTAINED SATS DURING THAT TIME WELL. TELE READS SB/NSR - RATE 61 AT THIS TIME. NO C/O CHEST PAIN. PG HARRIS - SALINE LOCKED, DOES NOT DRAW. VSS. NO C/O PAIN. CALL LIGHT WITHIN REACH, BED IN LOWEST POSITION. WILL CONTINUE TO MONITOR.
[2021-08-12 05:29] LABS: Hematocrit 38.8 % (33.0-51.0); Mean Corpuscular HGB Conc 30.9 g/dL (31.5-36.5); Mean Corpuscular Volume 84 fL (80-100); Mean Platelet Volume 10.8 fL (9.1-12.4); Platelet Count 261 K/mm3 (150-400); RDW Coefficient Variation 14.8 % (11.7-14.2); RDW Standard Deviation 44.7 fL (35.1-46.3); Red Blood Cell Count 4.62 M/mm3 (3.80-5.20); White Blood Cell Count 6.74 K/mm3 (4.00-11.30)
--- NOTE | 2021-08-12 05:42 | NUR ---
SHIFT SUMMARY NO ACUTE EVENTS THIS SHIFT. PT ALERT AND ORIENTED X4. ON 6L NC MAINTAINING SATS OVER 96%. PT SLEEPING THROUGHOUT MOST OF NIGHT. HR SR. BP STABLE. PT DESATS WITH ACTIVITY. DESATS TO 79% WHILE AMBULATING TO BATHROOM. NO C/O PAIN OR SOB TONIGHT. IN BED SLEEPING WITH CALL ALARM AT SIDE. POWERGLIDE DOES NOT DRAW BLOOD. WILL CONTINUE TO MONITOR UNTIL REPORT GIVEN TO DAYSHIFT RN.
[2021-08-12 06:12] LABS: Alanine Aminotransfer (ALT/SGP 27 U/L (12-78); Albumin, Blood 2.8 g/dL (3.4-5.0); Albumin/Globulin Ratio 0.8 (0.8-1.8); Alk Phos 44 U/L (50-136); Anion Gap 4 mmol/L (6-16); Aspartate Aminotrans (AST/SGOT 16 U/L (12-37); Bilirubin, Total 0.6 mg/dL (0.1-1.0); Blood Urea Nitrogen 12 mg/dL (8-24); Bun/Creatinine Ratio 18.9 (12.0-20.0); CO2, Blood 31 mmol/L (21-32); Calcium, Blood 8.1 mg/dL (8.5-10.1); Chloride, Blood 103 mmol/L (98-108); Creatinine, Blood 0.64 mg/dL (0.40-1.00); Globulin, Blood 3.5 g/dL (2.2-4.0); Glomerular Filtration Rate >60 (60-); Glucose, Blood 143 mg/dL (70-99); Potassium, Blood 4.7 mmol/L (3.5-5.5); Sodium, Blood 138 mmol/L (136-145); Total Protein, Blood 6.3 g/dL (6.4-8.2)
--- NOTE | 2021-08-12 17:38 | NUR ---
SHIFT SUMMARY PT HAS BEEN UP IN ROOM INDEPENDENTLY. PT WAS ASLEEP IN ROOM AT START OF SHIFT WITH SPO2 READING 98% AT 6L NC. AFTER WAKING UP PT SAT AT EDGE OF BED AND HAD A COUGHING FIT, SPO2 FELL TO 82%, OXYGEN WAS INCREASED TO 15L AND PT SLOWLY RECOVERED. SPO2 HAS RANGED FROM 82-98% ON 15L NC. PT VOICED NO C/O PAIN. PT STATED A WORRY ABOUT HOW THE POTENTIAL OF STRAINING FOR A BM MIGHT AFFECT OXYGENATION, BOWEL MANAGEMENT MEDS IN EMAR REVIEWED.
--- NOTE | 2021-08-13 05:52 | NUR ---
SHIFT SUMMARY ASSUMED CARE OF PT AT 1900. PT IS A/OX4. HEART SOUDNS REGULAR, LUNG SOUNDS HAVE CRACKLES AT THE BASES. PT STARTED ON 15L NC BUT WAS TITRATED DOWN TO 3L. PT STATES SHE IS FEELING ALOT BETTER AND ONLY FEELS SOB WHEN SHE SITS UP OR WALKS TO THE BATHROOM. PT C/O REFLUX, MEDICATED PER EMAR. PT SLEPT T/O THE NIGHT. CALL LIGHT IN REACH, BED IN LOWEST POSITION.
--- NOTE | 2021-08-13 18:00 | NUR ---
SHIFT SUMMARY PT HAS BEEN INDEPENDENT IN ROOM. PT HAS EPISODES OF SPO2 DESTURATION WITH ACTIVITY, 84-96% ON 10L. WHEN FIRST WAKING UP, SPO2 FELL TO 84% ON 3L NC, OXYGEN WAS INCREASED T0 10L AND SPO2 SLOWLY RECOVERED TO >90% OVER 15 MINUTES. PT HAS DENIED PAIN AND DISCOMFORT AND HAS BEEN UP IN ROOM. PT HAS DENIED CONCERNS OR QUESTIONS AT THIS TIME, STATED A HOPE TO DISCHARGE AND AN UNDERSTANDING OF A CURRENT CONTINUED NEED FOR HOSPITALIZATION. SBP 143-153, EPISODES OF TACHYCARDIA UP TO 145 WITH ACTIVITY.
--- NOTE | 2021-08-14 06:20 | NUR ---
SHIFT SUMMARY ASSUMED CARE OF PT AT 1900. PT IS A/OX4. HEART SOUNDS REGULAR, LUNG SOUDNS TIGHT. PT WAS ON 10L AT THE START OF SHIFT BUT WAS TITRATED DOWN TO 3L WHIULE SLEPING WITH SATS AT 96%, HR REAINED BETWEEN 60-70'S. PT HAS NO NEW COMPLAINTS. CALL LIGHT IN REACH, BED IN LOWEST POSITION.
--- NOTE | 2021-08-14 17:42 | NUR ---
SHIFT SUMMARY; ASSUMED CARE AT 0700, A/A/OX4. 02 VIA HIGH LIZZY CANNULA 5-10L. REPOSITIONS SELF IN BED, TO RESTROOM INDEPENDANTLY. SATS DECREASED TO LOW 80'S WITH EXERTION. RECOVERY WITHIN 5-10 MINS TO 94-97%. BED CHANGED TODAY, PLEASANT AND COOPERATIVE WITH CARE. VSS, NO ACUTE CHANGES DURING SHIFT. WILL CONTINUE TO MONITOR AND TREAT UNTIL CHANGE OF SHIFT.
--- NOTE | 2021-08-15 01:21 | NUR ---
ASSUMED CARE OF PT AT 1900. PLEASANT A/OX4 PATIENT. MAINTAINS ABOVE 92% ON 5-10L NC DEPENDING ON ACTIVITY. WHEN PATIENT NEEDS TO GET UP TO USE THE RESTROOM, EVEN WITH 10L ON SHE DESATS TO 82% AND TAKES ABOUT 2-3 MINUTES TO RECOVER. LS CLEAR ON TOP, DIM AT BASES. B WILL UPDATE CHANGES OCCUR. VSS. REPORTS NO PAIN, CP/PRESSURE.
[2021-08-15 09:34] LABS: Alanine Aminotransfer (ALT/SGP 70 U/L (12-78); Albumin, Blood 3.5 g/dL (3.4-5.0); Albumin/Globulin Ratio 0.9 (0.8-1.8); Alk Phos 53 U/L (50-136); Anion Gap 9 mmol/L (6-16); Aspartate Aminotrans (AST/SGOT 29 U/L (12-37); Bilirubin, Total 0.7 mg/dL (0.1-1.0); Blood Urea Nitrogen 20 mg/dL (8-24); Bun/Creatinine Ratio 32.2 (12.0-20.0); CO2, Blood 29 mmol/L (21-32); Chloride, Blood 101 mmol/L (98-108); Creatinine, Blood 0.62 mg/dL (0.40-1.00); Globulin, Blood 3.7 g/dL (2.2-4.0); Glomerular Filtration Rate >60 (60-); Glucose, Blood 105 mg/dL (70-99); Potassium, Blood 4.5 mmol/L (3.5-5.5); Sodium, Blood 139 mmol/L (136-145); Total Protein, Blood 7.2 g/dL (6.4-8.2)
--- NOTE | 2021-08-15 17:21 | NUR ---
SHIFT SUMMARY; ASSUMED CARE AT 0700. A/A/OX4 DURING SHIFT. UP TO RESTROOM EARLY IN SHIFT. SATS DECREASED TO 68% ON 10L VIA HI LIZZY NC. RETURNS TO BED. SATS REMAINING LOW, INCREASED 02 TO 15L NON REBREATHER OVER TOP TO BRING SATS TO LOW 80'S. DISCUSSED WITH RT AND DR. LONG, AIR VO STARTED BY RT. 40L 55% TO BRING SATS TO LOW 90'S. CHEST XRAY ORDERED BY DR. LONG. SATS CONTINUING TO DECREASE WITH EXERTION BUT RECOVERS WITHIN 10 MINS. UP TO CHAIR AT BEDSIDE IN AFTERNOON. DISCUSSED SIDE LYING AND PRONING. VERBALIZES UNDERSTANDING AND STATED WILL ATTEMPT. PLEASANT AND COOPERATIVE WITH CARE. WILL CONTINUE TO MONITOR AND TREAT UNTIL CHANGE OF SHIFT.
--- NOTE | 2021-08-16 06:13 | NUR ---
SHIFT SUMMARY ASSUMED CARE OF PT AT 1900. PT IS A/OX4. PT TALKING WITH FAMILY ON THE PHONE MOST OF THE EVENING. PT WAS ON AIRVO T/O THE NIGHT BUT WOULD SWITCH TO HIGHFLOW WHEN SHE WENT TO THE BATHROOM. PT DID NOT DESATURATE AND REMAINED IN THE 90'S WHILE DOING SO. PT HAS NO NEW COMPLAINTS, PT SLEPT T/O THE NIGHT. CALL LIGHT IN REACH, BED IN LOWEST POSITION.
--- NOTE | 2021-08-16 17:52 | NUR ---
SHIFT SUMMARY PT HAS BEEN INDEPENDENT IN ROOM. PT HAS MOVED FREELY ABOUT ROOM. PT HAS CALLED APPROPRIATELY FOR ASSISTANCE NEEDED. PT HAS DENIED C/O PAIN AND DISCOMFORT. SPO2 HAS FALLEN TO 81% WHEN CONVERSING ON THE PHONE OR AMBULATING TO RESTROOM. SPO2 RECOVERS RAPIDLY AT REST, WITHIN A FEW MINUTES AFTER AMBULATING. VSS, NO CHANGES TO CURRENT CONDITION.
--- NOTE | 2021-08-16 21:27 | NUR ---
ASSUMED CARE OF PT AT 1900. A/OX4. AIRVO 40L AND 55% MAINTAINING ABOVE 95%. WALKS TO BATHROOM ON HFNC 15L AND DROPS TO LOW 80'S. RECOVERS QUICKLY WHEN SEATED AND AIRVO PLACED. LS CLEAR UPPER AND WHEEZE AT BASES. PT WAS ABLE TO BLOW NOSE AND SEMI-DRY YELLOW MUCUS CAME OUT. PT ACTIVELY PRONING TODAY AND MOTIVATED. WILL UPDATE CHANGES OCCUR.
--- NOTE | 2021-08-17 17:52 | NUR ---
SHIFT SUMMARY PT HAS BEEN INDEPENDENT IN ROOM. PT HAS HAD SOME DIFFICULTY MAINTAINING SPO2, OXYGEN NEEDS INCREASED, SEE RT NOTES. PT HAS DENIED C/O PAIN AND DISCOMFORT, PT IS CAPABLE OF MOVING AND REPOSITIONING SELF. SBP 108-154, SPO2 82-97%.
--- NOTE | 2021-08-17 22:38 | NUR ---
Assumed care of pt at 1900. A/Ox4. Patient was initially on 40L and 70% on airvo, but d/t desatting into 60's with minimal movement - patient was increased to 50L and 70% to maintain above 89%. LS dim t/o. Patient reports being able to cough up some of the mucus from her lungs, yellow in color. Other VSS. Patient reports feeling like she's getting a UTI with pain/urg/freq. Urine is dark carol in color. Will report any changes that occur.
[2021-08-18 10:31] LABS: Source, Urine Clean Catch
[2021-08-18 10:41] LABS: Appearance, Urine Clear (Clear); Bilirubin, Urine Neg (Neg); Blood, Urine Neg (Neg); Color, Urine Yellow (P-Yellow); Glucose Qualitative, Urine Neg (Neg); Ketones, Urine Neg (Neg); Leukocyte Esterase, Urine Neg (Neg); Nitrite, Urine Pos (Neg); Protein, Urine Neg (Neg); Specific Gravity, Urine 1.025 (1.003-1.022); Urobilinogen, Urine NORM (Normal)
[2021-08-18 11:05] LABS: Bacteria Many /hpf; Hyaline Casts 0-2 /lpf (0-2); Red Blood Cells, Urine Not Seen /hpf (0-2); Squamous Epithelial Cells Mod /hpf (Few)
[2021-08-18 11:37] LABS: BASOPHILS ABSOLUTE AUTO 0.01 K/mm3 (0.00-0.23); BASOPHILS PERCENT AUTO 0 % (0-2); EOSINOPHILS ABSOLUTE AUTO 0.05 K/mm3 (0.00-0.68); EOSINOPHILS PERCENT AUTO 1 % (0-6); Hematocrit 45.1 % (33.0-51.0); Hemoglobin 14.5 g/dL (11.5-16.0); IMMATURE GRAN ABSOLUTE AUTO 0.09 K/mm3 (0.00-0.10); IMMATURE GRAN PERCENT AUTO 1 % (0-1); LYMPHOCYTES ABSOLUTE AUTO 0.84 K/mm3 (0.84-5.20); LYMPHOCYTES PERCENT AUTO 8 % (21-46); MONOCYTES ABSOLUTE AUTO 0.89 K/mm3 (0.16-1.47); MONOCYTES PERCENT AUTO 9 % (4-13); Mean Corpuscular HGB 26.2 pg (26.0-34.0); Mean Corpuscular HGB Conc 32.2 g/dL (31.5-36.5); Mean Corpuscular Volume 82 fL (80-100); Mean Platelet Volume 10.2 fL (9.1-12.4); NEUTROPHILS ABSOLUTE AUTO 8.21 K/mm3 (1.96-9.15); NEUTROPHILS PERCENT AUTO 81 % (41-73); Platelet Count 391 K/mm3 (150-400); RDW Coefficient Variation 15.7 % (11.7-14.2); RDW Standard Deviation 44.8 fL (35.1-46.3); Red Blood Cell Count 5.53 M/mm3 (3.80-5.20); White Blood Cell Count 10.09 K/mm3 (4.00-11.30)
--- NOTE | 2021-08-18 18:00 | NUR ---
SHIFT SUMMARY PT HAS BEEN RESTING IN ROOM. PT INDEPENDENTLY TRANSFERRED SELF TO COMMODE. PT REPOSITIONS SELF FREQUENTLY FOR COMFORT. PT HAS VOICED NO C/O PAIN. PT STATED THAT THEY WERE FEELING WEARY FROM INCREASED OXYGEN DEMAND. PT STATED A HOPEFUL FEELING TOWARD DISCHARGE. PT DESATS WITH ACTIVITY, 81% SPO2 LOWEST WITNESSED READING, AND WHEN CHANGING POSITION FROM LYING TO SITTING. SPO2 RECOVERY IS SLOW, TAKING SEVERAL MINUTES TO ACHIEVE >88%. SBP 126-141, SPO2 81-92%.
--- NOTE | 2021-08-18 21:26 | NUR ---
Changes this shift: Patient continues to feel like she is getting a bladder infection. Culture pending. Patient states that she is increasing her po intake of fluids to help. Oxygen requirements have gone up again. Airvo at 60L/88%. Report of desat today during dayshift while pt was transferring down into low 70's with upwards of 5 minutes to recover with 15L NRB over airvo. Pt attempted CPAP during dayshift but wasn't tolerated. Lungs still dim t/o. Pt reports in June getting sick with lung involvement, then patient began vaping wax dab pen which she feels is contributing to her difficult recovery. D/t increased O2 requirements, order was obtained to change pt to PCU status. Will update as changes occur.
[2021-08-19 13:04] LABS: Source, Urine Foley catheter
[2021-08-19 13:18] LABS: Bilirubin, Urine Neg (Neg); Blood, Urine 1+ (Neg); Glucose Qualitative, Urine Neg (Neg); Ketones, Urine Neg (Neg); Leukocyte Esterase, Urine Neg (Neg); Nitrite, Urine Neg (Neg); Protein, Urine Neg (Neg); Urobilinogen, Urine NORM (Normal)
[2021-08-19 13:28] LABS: Appearance, Urine Clear (Clear); Color, Urine Pale Yellow (P-Yellow)
[2021-08-19 13:31] LABS: White Blood Cells, Urine 0-2 /hpf (0-5)
[2021-08-19 13:32] LABS: Bacteria Few /hpf; Squamous Epithelial Cells Few /hpf (Few)
--- NOTE | 2021-08-19 18:17 | NUR ---
PT SUMMARY: PT REMAINS ALERT AND ORIENTED AT BASELINE. PT HAD TO USE BEDSIDE COMMODE THIS AM WAS SITTING ON THE SIDE OF THE BED AND WAS ALREADY DESATTING TO LOW 80'S NON REBREATHER ON TOP OF AIRVO SETTINGS 60L 88% FIO2 AND HAD TO TURN UP TO 95% FIO2 BUT STILL WASNT ABLE TO RECOVER PT WAS SO ADAMANT OF GETTING IN THE COMMODE TO HAVE A BOWEL MOVEMENT SOON PT TRANSFERRED TO THE COMMODE PT DESATTED TO 60% PT KEEPS SAYING "THIS IS NORMAL FOR ME, IT TAKES SOME TIME TO RECOVER.." PT WAS ON THE COMMODE SATS REMAINED LOW 60-70'S FOR THE NEXT 10-15MINS, PT WAS ENCOURAGED TO GET ON CPAP/BIPAP BUT REFUSED IT PT WAS EDUCATED ABOUT THE EFFECTS OF LOW SATS FOR THAT AMOUNT OF PERIOD OF TIME AND OFFERED IF SHE WANTS A CATHETER PT AGREED, PT THEN WENT BACK TO BED AND PRONED THEN PT STARTED TO PANIC SATS WERE ON THE 60'S BARELY EVEN GOING UP RESPIRATORY WAS CALLED AND WAS ON STANDBY PT COULDN'T CATCH HER BREATH, AMBU BAG AT BEDSIDE, PT WENT BACK TO SUPINE POSITION SITTING SHE WAS TRYING TO RECOVER TOOK 10 MINS TO RECOVER BACK UP TO 80%, PROVIDER CALLED AND MADE AWARE, PT WAS TITRATED BACK DOWN TO 60L 88% ON AIRVO SETTINGS, CATHETER WAS PUT IN PLACE, PT STILL ABLE TO MOVE AROUND IN BED AND SWITCH POSITIONS INDEPENDENTLY. PT ALSO STARTED ON BUSPAR TID TO HELP WITH ANXIETY. NO OTHER ISSUES REPROTED THE REST OF THE VITALS REMAINED STABLE. ABLE TO MAKE NEEDS KNOWN, WILL REPORT TO ONCOMING SHIFT
--- NOTE | 2021-08-20 06:29 | NUR ---
SHIFT SUMMARY PT RESTED WELL THORUGH THE NIGHT, ALERT AND ORIENTED, ABLE TO MAKE NEEDS KNOWN. COOPERATIVE WITH PLAN OF CARE. NO TELE FOR PATIENT, NO CHEST PAIN. BP AND HR WNL. SATS >95% ALL THROUGH THE NIGHT. AIRVO SETTINGS ON 60L/88%. RESPIRATORY THERAPY DIDNT FEEL COMFORTABLE WEANING PT O2 DOWN PATIENT HAD DESATTED RAPIDLY EARLIER IN THE DAY. RN INFORMED ANGULO WAS PLACED TO HELP MINIMIZE DESATS WITH ACTIVITY, AND RESPIRATORY SAID THEY'D LET AM RESP TEAM KNOW. ANGULO - >1L UOP. NO BM. VSS. NO C/O PAIN. CALL LIGHT WITHIN REACH, BED IN LOWEST POSITION. WILL CONTINUE TO MONITOR.
--- NOTE | 2021-08-20 17:57 | NUR ---
PT SUMMARY: NO ACUTE CHANGE FOR THE SHIFT, PT WAS TITRATED DOWN ON AIRVO SETTINGS 50L 60% FIO2, PT STILL DESATS WITH MINIMAL ACTIVITY, PT SITS ON THE SIDE OF THE BED FOR MEALS PT WILL DESAT TO LOW 80'S HAS TO BE TURNED UP TO 85% ON FIO2. DENIES ANY CHEST PAIN OR ANY PAIN FOR THE SHIFT, ATE MEALS WITH NO ISSUES. MOVES INDEPENDENTLY IN BED, ANGULO DRAINING PATENT VIA GRAVITY. ALSO PT STARTED ON KEFLEX FOR UTI. VITALS SIGNS STABLE. NO OTHER ISSUES REPORTED. PT ABLE TO MAKE NEEDS KNOWN, WILL REPORT TO [facility] SHIFT
--- NOTE | 2021-08-21 04:44 | NUR ---
shift summary pt rested well through the shift. alert and oriented, able to make needs known. cooperative with plan of care. no tele, but hr wnl. sats >97% on airvo. was able to wean down o2 to 40l/37%. duque in place - >1l uop. no c/o pain or chest pain. no cough. vss. call light within reach, bed in lowest position. will continue to monitor.
--- NOTE | 2021-08-21 08:03 | NUR ---
ASSUMPTION OF CARE Pt is a/o x 4 and has no complaints. She is pleasant but does seem a little sad about being away from her family. She reports that she feels "wheezy" when she takes a deep breath and this is consistent with her resp assessment. She continues on the airvo @ 40LPM with O2 sats sitting at 90% this morning. Her duque is patent and she has good PO intake. RT is working with her on titrating her O2. She is able to make her needs known and calls for help when needed.
--- NOTE | 2021-08-21 16:43 | NUR ---
SHIFT SUMMARY Pt is a/o x 4 with no complaints. She is pleasant and cooperative with her care. She is currently on the AIRVo @ 40 lpm/70%. She received a bedbath today which took her a long time to recover from after all of the movement, thus a repeat CXR was completed and an order was obtained for CPT. The CPT has been effective and she has been able to have a productive cough. We later changed her linens and hyperoxygenated her before the turning from side to side and found that was very effective and she did not desat as significantly as she did this morning. The DR was made aware of this and agrees this should be part of her interventions of care during her ADLs. will pass along in report. She has been on the phone with her family giving them updates throughout the day. She continues with the duque in place. RT is still titrating her O2. She is able to make her needs known and calls when needed.
--- NOTE | 2021-08-22 05:40 | NUR ---
SHIFT SUMMARY PT ALERT AND ORIENTED X4. AIRVO TITRATED DOWN FROM 40L 70% FIO2 TO 40L 60% FIO2. MAINTAINING O2 SATS OVER 98%. BP STABLE. NO C/O PAIN OR DISCOMFORT. ANGULO IN PLACE DRAINING YELLOW URINE TO GRAVITY. HARRIS PG PATENT BUT DOES NOT DRAW. IN BED RESTING WITH CALL ALARM AT SIDE. WILL CONTINUE TO MONITOR UNTIL REPORT GIVEN TO DAYSHIFT RN
--- NOTE | 2021-08-22 17:27 | NUR ---
SHIFT SUMMARY: COVID PATIENT IS ALERT AND ORIENTED X4. HER OXYGEN SATS HAVE IMPROVED SINCE MOVING AND SITTING UP IN A CHAIR. WHILE SITTING UP IN A CHAIR HER SATS ARE MAINLY >90%. SHE IS ON AIRVO WITH 50/50 WHICH IS 10% LESS OXYGEN SHE USED THIS MORNING WHICH IS MUCH IMPROVEMENT. PATIENT REPORTS FEELING "MORE HUMAN WHEN I SIT UP IN A CHAIR AND I FEEL BETTER!". ANGULO IS PATENT AND IS DRAINING PER GRAVITY. SHE IS TOLERATING PO INTAKE. CALLS APPROPRIATELY. CALL LIGHT WITHIN REACH. THE PLAN IS TO CONTINUE RT THERAPY AND ENCOURAGE SITTING UP IN THE CHAIR DURING THE DAY. DR. PAYNE ADDED IV METOPROLOL PRN IF HR IS >130 SINCE WHEN SHE STANDS FOR TOO LONG HER HR BECOMES >140 AT TIMES.
--- NOTE | 2021-08-23 07:27 | NUR ---
SHIFT SUMMARY PT ALERT AND ORIENTED X4. BP STABLE. TITRATING PT OXYGEN ABLE. STARTED SHIFT ON 50L 50% FIO2, TITRATED PT DOWN TO 50L 40% FIO2. ANGULO IN PLACE DRAINING YELLOW URINE TO GRAVITY. HARRIS POWERGLIDE DOES NOT DRAW. PT DESATS WITH MOVEMENT DURING DAY. USED AIRVO AND NON-REBREATHER WHILE GETTING PT FROM CHAIR TO BED AT 2200. PT TOLERATED MOVE TO BED WITHOUT DESATURATION. IN BED SLEEPING WITH CALL ALARM AT SIDE
--- NOTE | 2021-08-23 07:58 | NUR ---
CARE ASSUMPTION PATIENT IS ALERT AND ORIENTATED X4. VSS. SPO2 >90% ON 34% 50L. PATIENT REPORTS NO PAIN, CHEST PAIN/PRESSURE, NUMBNESS/TINGLING, OR HEADACHE THIS MORNING. PATIENT DOES HAVE SOME SHORTNESS OF BREATH WITH TALKING AND EXERTION. PATIENT IS GETTING UP IN CHAIR WITH RESPIRATORY CARE. PATIENT DID DESAT INTO HIGH 50S WHEN SITTING AT THE SIDE OF THE BED, BUT RESPIRATORY CARE PLACED A NON REBREATHER AND SATS INCREASED INTO 70S AND AFTER A TWO MINS WAS IN THE HIGH 80S AGAIN. PATIENT CALL LIGHT WITHIN REACH. WILL CONTINUE TO MONITOR AND PROVIDE CARE.
--- NOTE | 2021-08-23 14:20 | NUR ---
UPDATE PATIENT IS NOW ON 15L HIGH FLOW NASAL CANAL AND SPO2 >90%. PATIENT DOES DESAT WITH EXERTION INTO THE HIGH 70S, AND RECOVERS INTO THE 80S IN ABOUT 1-2 MINS. CALL LIGHT WITHIN REACH. WILL CONITNUE TO MONITOR AND PROVIDE CARE.
--- NOTE | 2021-08-23 17:30 | NUR ---
SHIFT SUMMARY PATIENT IS A/OX4. VSS. SP2 >90% ON 11L HIGH FLOW NASAL CANULA. NO ACUTE CHANGES THIS SHIFT. ANGULO CATH IN PLACE DRAINING WITH GRAVITY. CALL LIGHT WITHIN REACH. WILL CONTINUE TO MONITOR AND PROVIDE CARE UNTIL HAND OFF WITH NEXT SHIFT.
--- NOTE | 2021-08-24 05:22 | NUR ---
SHIFT SUMMARY NO ACUTE CHANGES THIS SHIFT. VSS. AXO. NO TELE. TITREATED FROM 14L TO 12L HIFLO, SPO2 >94%. PT EXERTIONALLY DYSPNEIC WHEN GETTING OOB BUT TOLERATES WELL. LUNGS CLEAR/DIM. ANGULO PATENT AND DRAINING. AND OTHERWISE, PT RESTING IN ROOM QUIETELY T/O SHIFT.
--- NOTE | 2021-08-24 09:10 | NUR ---
PATIENT CALLED AND REPORTED PAIN IN HER MID CHEST LOW STERNUM RATED 2-3/10. STATES IT IS NEW. STATES THAT IT STARTED AFTER A COUGHING SPELL THIS MORNING. STATES IT FEELS LIKE A PRESSURE. IT DOES NOT RADIATE. IT GETS "A LITTLE" WORSE WITH COUGHING. IT DOES NOT GET WORSE WITH PALPATION. IT GETS "A LITTLE" WORSE WITH A DEEP BREATH. RESPIRATORY THERAPIST STATES THAT THIS OFTEN HAPPENS WITH COVID. NOTIFIED DR. JOHNSON. PATIENT IS NOT ON TELE. DR. JOHNSON STATES SHE FEELS IT IS RESPIRATORY. SHE WILL COME EVALUATE THE PATIENT.
--- NOTE | 2021-08-24 12:00 | NUR ---
PATIENT ASSISTED WITH BED BATH, WAS BEING SOB ON 12L O2 VIA NC. SPO2 NOTED TO BE UPPER 70'S. INCREASED O2 TO 15L. SPO2 WAS NOT IMPROVING. SPO2 DECREASING TO LOW 70'S. HAD PATIENT TAKE DEEP BREATHS AND PLACED NONREBREATHER MASK OVER HER. SHE SAT ON THE SIDE OF THE BED. SPO2 NOT IMPROVING PAST LOW-MID 80'S. CALLED RESPIRATORY THERAPIST WHO PLACED THE PATIENT ON AIRVO AT 45L FIO2 93% WELL NONREBREATHER. SPO2 UP TO 90'S. RESPIRATORY THERAPIST AND PALLIATIVE CARE RN ASSISTED PATIENT TO CHAIR. RESPIRATORY THERAPIST PLACED PATIENT ON CHEST PHYSIOTHERAPY AND WAS ABLE TO WEAN OFF THE NONREABREATHER AND ONLY HAVE HER ON AIRVO. PATIENT SITTING IN CHAIR AT THIS TIME.
--- NOTE | 2021-08-24 12:30 | NUR ---
DR. JOHNSON AT BEDSIDE. DISCUSSED POC. NOTIFIED HER OF OXYGEN REQUIREMENTS TO GET SPO2 BACK IN THE 90'S WITH ANY EXERTION, INCLUDING LAYING IN BED FOR BEDBATH. DISCUSSED MEDS FOR AIR HUNGER AND PATIENT'S ELEVATED BP THIS AM, SHE SAID SHE WOULD REVIEW CHART.
--- NOTE | 2021-08-24 13:59 | NUR ---
Assisted with pt care in transitioning to out of bed.Pt alert minimal air hunger, Struggling with air hunger and fatigue. He ventilation is poor. Did some exercises with her to help her increase her rise and fall of her chaest.Pt sats down until back on airvo.
--- NOTE | 2021-08-24 18:43 | NUR ---
SHIFT SUMMARY: PATIENT A/OX3. REPORTED PAIN IN HER MID LOWER STERNUM RATED 2-3 THIS AM BUT IT WENT AWAY AFTER SHE GOT UP TO THE CHAIR. SHE STATES SHE BELIEVES IT IS FROM COUGHING. DURING BEDBATH PATIENT BECAME SHORT OF BREATH AND SPO2 WENT DOWN TO 70'S. PATIENT HAD TO BE PLACED ON NONREBREATHER AND THEN AIRVO TO GET SPO2 BACK UP TO 90'S. ONCE PATIENT WAS ON AIRVO 45L FIO2 93% AND NONREBREATHER SPO2 QUICKLY INCREASED TO 90'S. PATIENT GOT UP TO CHAIR. WORE AIRVO FOR SEVERAL HOURS WHILE IN CHAIR. TITRATING DOWN OXYGEN, PATIENT NOW ON 5L VIA HIGH FLOW NASAL CANNULA. CHEST PHYSIOTHERAPY. ANGULO DRAINING. PATIENT SO SHORT OF BREATH WITH ACTIVITY THIS MORNING SO ANGULO REMAINS IN PLACE. PATIENT STATES THAT SHE HAS BEEN HAVING DIFFICULTY RECOVERING IN THE MORNINGS. SHE WANTS TO TRY SITTING UP AT EDGE OF BED IN THE MIDDLE OF THE NIGHT TONIGHT TO SEE IF THAT WILL HELP MOBILIZE SECRETIONS AND PREVENT HER FROM HAVING ANOTHER EPISODE OF DIFFICULT RECOVERY. WILL CONT TO MONITOR AND REPORT TO ONCOMING RN.
--- NOTE | 2021-08-25 04:32 | NUR ---
SHIFT SUMMARY NO ACUTE CHANGES THIS SHIFT. VSS. AXO. UP IN CHAIR ON SHIFT START, AMBULATED TO BED WITHOUT ANY RESPIRATORY DISTRESS. REMAINS IN 5LNC, SPO2 >95%, ABOVE 92% WHEN AMBULATING SHIRT DISTANCES. PT ENDORSES THE FEELING OF HER RESPIRASTIRY STATUS IMPROVING. ANGULO REMAINS PATENT. POWERGLIDE PATENT, DOES NOT DRAW BLOOD. OTHERWISE, PT RESTING IN ROOM. USES CALL LIGHT APPROPRIATELY.
--- NOTE | 2021-08-25 07:50 | NUR ---
CARE ASSUMPTION PATIENT IS ALERT AND ORIENTATED X4. PATIENT REPORTS NO CHEST PAIN/PRESSURE, HEADACHE, PAIN, OR SHORTNESS OF BREATH AT REST. VSS. SPO2 >90% ON 4L HIGH FLOW NC. PATIENT ANGULO CATH IN PLACE DRAINING WITH GRAVITY, CLEAR YELLOW. CLEAR/DIM LUNG SOUNDS. DEPENDENT EDEMA IN BILATERAL LOWER EXTREMITIES. SEE SHIFT ASSESSMENT FOR FULL SHIFT ASSESSMENT DETIALS. CALL LIGHT WITHIN REACH AND BED IN LOWEST POSITION. WILL CONTINUE TO MONITOR AND PROVIDE CARE.
--- NOTE | 2021-08-25 17:02 | NUR ---
SHIFT SUMMARY PATIENT IS A/OX4. VSS. SPO2 >90% ON 4L HIGH FLOW NC. PATIENT WHEN TRANSFERING TO THE CHAIR THIS AFTERNOON WAS ON 15L HF NC AND PATIENT DID NOT DESAT. THIS RN TITRATED TO 8L AND PATIENT WAS SITTING AT 94% SPO2, SO THEN THIS RN RETURNED IT TO 4L AND THE PATIENT WAS SITTING AT 93% SPO2. PATIENT DID MUCH BETTER WITH HER DESATURATION THIS AFTERNOON AND RECOVERY TIME. NO ACUTE CHANGES THIS SHIFT. ANGULO CATH DRAINING WITH GRAVITY. PATIENT DISCUSSED WHEN ANGULO COULD BE REMOVED, AND THIS RN EDUCATED THAT IF SHE CONTINUES TO STAY IN THE 90S WITH EXERTIION AND NOT DESATING IN THE PREVIOUS DAYS IT COULD BE REMOVED, WILL CONTINUE TO MONITOR AND ASSESS FOR THIS. PATIENT CALLS APPROPRIATELY. PATIENT SITTING IN CHAIR WITH CALL LIGHT WITHIN REACH. WILL CONTINUE TO MONITOR AND PROVIDE CARE UNTIL HAND OFF WITH NEXT SHIFT.
--- NOTE | 2021-08-26 05:52 | NUR ---
SHIFT SUMMARY NO ACUTE CHANGES THIS SHIFT. VSS. AXO. OFF TELE. PT WAS TITRATED FROM 5LNC TO 1.5L NC. SPO2 >92%. PT TOLERATED THIS TITRATION EVEN WHEN AMBULATING FROM CHAIR TO BED. PT STATES BREATHING FEELS "EASIER AND BETTER" AND IS LOOKING FORWARD TO GOING HOME. OTHERWISE, PT RESTING QUIETELY IN ROOM.
[2021-08-26] MEDS ORDERED: ALBU2.5V5 INH (13:56)
[2021-08-26] MEDS ORDERED: ELIQUIS5 M2 PO (13:56)
[2021-08-26] MEDS ORDERED: THERA-D2000 UNIT PO (13:57)
[2021-08-26] MEDS ORDERED: DEXA2 PO (13:57)
[2021-08-26] MEDS ORDERED: LOSA25 PO (13:57)
--- NOTE | 2021-08-26 18:47 | NUR ---
end of shift/discharge summary: EVERARDO HAD MADE LARGE INMPROVEMENTS IN EXERTIONAL DYSPNEA, EVERARDO HAS BEEN UP FOR A SHOWER, AND DESATURATED AFTER 15 MINUTES, RECOVERY FROM THAT DESAT WAS 15 MINUTES VERSUS THE LARGE TIME OF 1-2 HOURS PREVIOUSLY SEEN BY RT.
== END 2021-08-26 18:30 | disposition home or self-care (01) | DRG 177 ==
LOC: ER 17:36 → PCU 22:25 → SURS 22:25 → PCU 08-06 10:39 → ICUW 08-24 18:10 → PCU 08-24 18:30
PROVIDERS: Emergency Medicine; Internal Medicine; Nurse Practitioner Acute Care; ADMIT Internal Medicine
PROC: 8E0ZXY6 Isolation (ICD-10-PCS; principal; 2021-08-04)
PROC: 5A0955A Assistance with Respiratory Ventilation, Greater than 96 Consecutive Hours, High Flow/Velocity Cannula (ICD-10-PCS; 2021-08-04)
PROC: 3E0333Z Introduction of Anti-inflammatory into Peripheral Vein, Percutaneous Approach (ICD-10-PCS; 2021-08-05)
DX: U07.1 COVID-19 (principal); J96.01 Acute respiratory failure with hypoxia; J12.82 Pneumonia due to coronavirus disease 2019; Z68.44 Body mass index [BMI] 60.0-69.9, adult; E66.01 Morbid (severe) obesity due to excess calories; E87.6 Hypokalemia; R79.89 Other specified abnormal findings of blood chemistry; I10 Essential (primary) hypertension; R53.81 Other malaise; Z88.2 Allergy status to sulfonamides; Z91.011 Allergy to milk products; Z90.49 Acquired absence of other specified parts of digestive tract; Z90.89 Acquired absence of other organs; Z98.890 Other specified postprocedural states; Z87.891 Personal history of nicotine dependence; Z79.899 Other long term (current) drug therapy
CPT/HCPCS: 36415; 71045; 71046; 71260; 80048; 80053; 81001; 82728; 83690; 83735; 83880; 84145; 84484; 85025; 85027; 85379; 86140; 87077; 87086; 87186; 93005; 93010; 94640; 94660; 94667; 94668; 94761; 94762; 96374; 96375; 99284; 99285-25; A9270; C9399; J0248; J1100; J1650; J1815; J2405; J2765; J3480; J7030; J7626; Q9967

== ENCOUNTER 2021-08-31 22:38 | Emergency (ER) | payer OTHER ==
[~2021-08-31] VITALS: Ht 180.3 cm; Wt 190.5 kg
[~2021-08-31 22:38] MED LIST changes: +ALBU2.5V5 INH; +DEXA2 PO; +ELIQUIS5 M2 PO; +LOSA25 PO; +THERA-D2000 UNIT PO
== END 2021-09-01 00:02 | disposition left against medical advice (07) ==
LOC: ER 22:38
DX: Z53.21 Procedure and treatment not carried out due to patient leaving prior to being seen by health care provider (principal)

== ENCOUNTER → 2022-05-19 | Outpatient (CLI) | payer OTHER | END | disposition home or self-care (01) | LOC: LAB 16:41 → LAB SHORT 16:41 | DX: N39.0 Urinary tract infection, site not specified (principal) | CPT/HCPCS: 87086 ==

== ENCOUNTER → 2022-10-23 | Outpatient (CLI) | payer OTHER ==
[2022-10-23 15:57] LABS: Albumin, Blood 2.8 g/dL (3.4-5.0); Albumin/Globulin Ratio 0.7 (0.8-1.8); Bilirubin, Total 0.4 mg/dL (0.1-1.0); Calcium, Blood 8.1 mg/dL (8.5-10.1); Creatinine, Blood 0.53 mg/dL (0.40-1.00); Globulin, Blood 3.9 g/dL (2.2-4.0); Potassium, Blood 3.7 mmol/L (3.5-5.5); Total Protein, Blood 6.7 g/dL (6.4-8.2)
== END | disposition home or self-care (01) ==
LOC: LAB 10:55 → LAB SHORT 10:55
PROVIDERS: Advanced Practice Midwife
DX: Z09 Encounter for follow-up examination after completed treatment for conditions other than malignant neoplasm (principal); Z87.59 Personal history of other complications of pregnancy, childbirth and the puerperium
CPT/HCPCS: 80053

== ENCOUNTER 2023-03-14 03:10 | Inpatient (IN) | payer OTHER ==
[2023-03-14] VITALS (11 sets, daily range): BP systolic 101–125; BP diastolic 55–73
[~2023-03-14] VITALS: Ht 180.3 cm; Wt 193.1 kg
[2023-03-14] MEDS ORDERED: METF500C PO (06:10)
[2023-03-14] MEDS ORDERED: ASPI81CH (06:10)
--- NOTE | 2023-03-14 06:17 | NUR ---
PT HAD IV PLACED BY EMS BEFORE ARRIVAL TO [facility]. AFTER RECOVERY PERIOD DONE, PT REQUESTED TO HAVE IV REMOVED. RN EDUCATED PT THAT WE LIKE TO HAVE IV ACCESS IN CASE OF EMERGENCY AND FOR HER HIGH PPH RISK AND THAT IF REMOVED, SHE UNDTERSTANDS THAT WE WOULD HAVE TO POTENTIALLY PLACE ANOTHER IV IN AN EMERGENCY. PT VERBALIZED UNDERSTANDING AND WOULD STILL LIKE IV REMOVED. THIS RN REMOVED IV FROM R AC
[2023-03-14 06:25] LABS: Hematocrit 35.2 % (33.0-51.0); Hemoglobin 11.9 g/dL (11.5-16.0); Mean Corpuscular HGB 28.3 pg (26.0-34.0); Mean Corpuscular HGB Conc 33.8 g/dL (31.5-36.5); Mean Corpuscular Volume 84 fL (80-100); Mean Platelet Volume 10.7 fL (9.1-12.4); Platelet Count 200 K/mm3 (150-400); RDW Coefficient Variation 14.3 % (11.7-14.2); RDW Standard Deviation 43.7 fL (35.1-46.3); Red Blood Cell Count 4.21 M/mm3 (3.80-5.20); White Blood Cell Count 15.35 K/mm3 (4.00-11.30)
[2023-03-15 08:09] VITALS: BP 128/77
[2023-03-15 12:27] VITALS: BP 129/60
--- NOTE | 2023-03-15 12:32 | NUR ---
BANDS MATCHED READY TO DC HOME, MOM GETTING DRESSED AND BABY INTO CAR SEAT
--- NOTE | 2023-03-16 09:45 | NUR ---
UPDATED LENGTH, HEAD, & CHEST PER BABY EMR
== END 2023-03-15 13:15 | disposition home or self-care (01) | DRG 807 ==
LOC: OBS 03:10 → BC 03:17
PROVIDERS: ADMIT Registered Nurse Community Health
PROC: 10E0XZZ Delivery of Products of Conception, External Approach (ICD-10-PCS; principal; 2023-03-14)
DX: O24.429 Gestational diabetes mellitus in childbirth, unspecified control (principal); Z37.0 Single live birth; O99.214 Obesity complicating childbirth; E66.01 Morbid (severe) obesity due to excess calories; Z3A.39 39 weeks gestation of pregnancy; Z88.1 Allergy status to other antibiotic agents; Z79.82 Long term (current) use of aspirin; Z90.49 Acquired absence of other specified parts of digestive tract; Z98.890 Other specified postprocedural states; Z79.51 Long term (current) use of inhaled steroids; Z79.84 Long term (current) use of oral hypoglycemic drugs
CPT/HCPCS: 36415; 59414; 85027; A9270

== ENCOUNTER → 2023-09-09 | Outpatient (CLI) | payer OTHER ==
[~2023-09-09] MED LIST changes: +ASPI81CH; +METF500C PO
== END | disposition home or self-care (01) ==
LOC: LAB 16:15 → LAB SHORT 16:15
DX: N94.10 Unspecified dyspareunia (principal)
CPT/HCPCS: 87070; 87205